=== PATIENT | male | born 1955 | race Caucasian/White ===

== ENCOUNTER 2017-01-05 13:07 | Emergency (ER) | payer OTHER ==
[~2017-01-05] VITALS: Ht 177.8 cm; Wt 79.4 kg
[2017-01-05 13:13] VITALS: BP 129/87
[2017-01-05] MEDS ORDERED: GUAI118L13 PO (13:48)
[2017-01-05] MEDS ORDERED: AMOX875T PO (13:48)
[2017-01-05] MEDS ORDERED: ALBU6.7H IH (13:48)
--- NOTE | 2017-01-05 13:49 | PHYS DOC ---
General Chief Complaint: COUGH Stated Complaint: COUGH,SOA Time Seen by MD: 13:16 Source: patient Exam Limitations: no limitations Problems: History of Present Illness Initial Comments Pt is 61/M to ED c/o cough. Pt visiting from [place], past week to ten days worsening facial pressure, yellow nasal disch, scratchy throat and yellow productive cough. No cp/sob/fever/ernst/ ZAVALA/focal weakness. "Bronchitis" last month tx with antibiotic. Flies home tomorrow, cough keeping pt awake and causing abdominal muscle pain. No other c/ o. Timing/Duration: 1 week, getting worse Severity: moderate Modifying Factors: improves with rest Associated Symptoms: cough, other Allergies: Coded Allergies: No Known Drug Allergies (Unverified , 01/05/17) Past Medical History Medical History: GERD Surgical History: noncontributory Social History Smoker: non-smoker Alcohol: none Drugs: none Review of Systems Constitutional: denies chills, denies fever, denies malaise EENTM: see HPI, denies eye pain, denies blurred vision, denies double vision, denies ear pain, nose congestion, throat pain Respiratory: cough, denies shortness of breath, denies wheezing Cardiovascular: denies chest pain, denies palpitations, denies syncope Gastrointestinal: denies abdominal pain, denies diarrhea, denies nausea, denies vomiting Genitourinary: denies dysuria, denies frequency, denies hematuria Musculoskeletal: denies back pain, denies joint swelling, denies neck pain Psychiatric/Neurological: denies headache, denies numbness, denies paresthesia Physical Exam General Appearance: WD/WN, no apparent distress Eyes: bilateral eye normal inspection, bilateral eye PERRL, bilateral eye EOMI Ear, Nose, Throat: hearing grossly normal, normal ENT inspection (green nasal/ PND, max sinus TTP, airway clear) Neck: non-tender, supple Respiratory: normal breath sounds, no respiratory distress Cardiovascular: normal peripheral pulses, regular rate, rhythm Gastrointestinal: non tender, soft Back: no CVA tenderness, no vertebral tenderness Extremities: non-tender, normal inspection 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 Continue current meds. Rx: amoxicillin, albuterol MDI, guaif/cod syrup Take meds with food. Follow up with your doctor in 2 weeks for recheck. Return to ED with new or changing symptoms. ODALIS MEJIA DO January 05, 2017 13:49
== END 2017-01-05 13:58 | disposition home or self-care (01) ==
LOC: ER 13:07
DX: J01.90 Acute sinusitis, unspecified (principal); K21.9 Gastro-esophageal reflux disease without esophagitis
CPT/HCPCS: 99283